=== PATIENT | male | born 1980 | race Caucasian/White ===

== ENCOUNTER 2023-01-01 07:00 | Emergency (ER) | payer BC ==
[~2023-01-01] VITALS: Ht 185.4 cm; Wt 147.4 kg
[2023-01-01 07:07] VITALS: BP 130/78
--- NOTE | 2023-01-01 07:10 | NUR ---
TO LOBBY A/W BED AMBULATORY
--- NOTE | 2023-01-01 07:15 | NUR ---
TO BED AMBULATORY
[2023-01-01] MEDS ORDERED: KETOROLAC 30 MG/ML VIAL IM ONE (07:30)
[2023-01-01] MEDS ORDERED: LIDOCAINE 5% 1 EA PATCH TP SCH (07:30)
[2023-01-01] MEDS ORDERED: diazePAM 5 MG TAB PO ONE (07:30)
[2023-01-01 08:00] VITALS: BP 130/78
--- NOTE | 2023-01-01 08:00 | NUR ---
MD evaluating patient
[2023-01-01] MEDS ORDERED: oxyCODONE/APAP 5/325 MG 1 TAB TAB PO ONE (08:35)
[2023-01-01] MEDS ORDERED: OXYC5TAB4 PO ×2 (09:05→11:57)
--- NOTE | 2023-01-01 09:48 | NUR ---
Patient discharged with v/s stable. Written and verbal after care instructions given and explained. Patient alert, oriented and verbalized understanding of instructions. Ambulatory with steady gait. All questions addressed prior to discharge. ID band removed. Patient advised to follow up with PMD. Rx of Roxicodone given. Patient educated on indication of medication including possible reaction and side effects. Opportunity to ask questions provided and answered.
== END 2023-01-01 09:48 | disposition home or self-care (01) ==
LOC: MED 07:00
DX: M54.50 Low back pain, unspecified (principal); Z79.899 Other long term (current) drug therapy
CPT/HCPCS: 96372; 99284; J1885

== ENCOUNTER 2023-11-18 09:11 | Emergency (ER) | payer BC, MEDICAID ==
[~2023-11-18] VITALS: Ht 185.4 cm; Wt 131.5 kg
[~2023-11-18 09:11] MED LIST: OXYC5TAB4 PO
[2023-11-18 09:27] VITALS: BP 129/100; PULSE 78; RESP 16; TEMP 97.9; O2SAT 99
[2023-11-18] MEDS ORDERED: KETOROLAC 30 MG/ML VIAL ONE (09:48)
[2023-11-18] MEDS: KETOROLAC 30 MG/ML VIAL IM ONE (09:54)
[2023-11-18] MEDS ORDERED: ALBU0.0912 IH (10:28)
[2023-11-18] MEDS ORDERED: BENZ200C4 PO (10:28)
[2023-11-18 10:30] LABS: FLU A ANTIGEN negative (NEGATIVE); FLU B ANTIGEN NEGATIVE (NEGATIVE)
[2023-11-18 10:36] VITALS: BP 129/100; PULSE 78; RESP 16; TEMP 97.9; O2SAT 98
== END 2023-11-18 10:36 | disposition home or self-care (01) ==
LOC: MED 09:11
DX: B34.9 Viral infection, unspecified (principal); J06.9 Acute upper respiratory infection, unspecified; Z20.822 Contact with and (suspected) exposure to COVID-19; I10 Essential (primary) hypertension; Z79.899 Other long term (current) drug therapy
CPT/HCPCS: 87426; 87804; 96372; 99283; J1885

== ENCOUNTER 2023-11-30 07:02 | Emergency (ER) | payer BC ==
[~2023-11-30] VITALS: Ht 185.4 cm; Wt 127.0 kg
[~2023-11-30 07:02] MED LIST changes: +ALBU0.0912 IH; +BENZ200C4 PO
[2023-11-30 07:21] VITALS: BP 123/84; PULSE 77; RESP 18; TEMP 98.1; O2SAT 96
[2023-11-30] MEDS: KETOROLAC 30 MG/ML VIAL IM ONE (08:09)
[2023-11-30 08:33] LABS: APPEARANCE,URINE CLEAR (CLEAR); BILIRUBIN,URINE NEGATIVE (NEGATIVE); BLOOD, URINE TRACE-I (NEGATIVE); COLOR,URINE YELLOW (YELLOW); LEUKOCYTE ESTERASE ,URINE NEGATIVE (NEGATIVE); NITRITE, URINE NEGATIVE (NEGATIVE); PH,URINE 6.5 (5.0-9.0); PROTEIN,URINE NEGATIVE (NEGATIVE); UGLUCOSE NEGATIVE (NEGATIVE)
[2023-11-30 09:01] LABS: BACTERIA,URINE OCCASSIONAL /HPF (None Seen); SQUAMOUS EPITHELIAL CELL,UR 0-3 (FEW) /LPF (0-3 (FEW)); WBC,URINE 0-5 /HPF (0-5)
[2023-11-30 09:14] LABS: FLU A ANTIGEN negative (NEGATIVE); FLU B ANTIGEN NEGATIVE (NEGATIVE)
[2023-11-30 09:27] LABS: BASOPHILS % (AUTO) 0.7 % (0.0-2.0); EOSINOPHILS # (AUTO) 0.2 K/uL (0-0.4); EOSINOPHILS % (AUTO) 3.2 % (0.0-4.0); HEMATOCRIT 45.5 % (36-52); HEMOGLOBIN 15.7 g/dL (12.0-18.0); LYMPHOCYTES # (AUTO) 1.2 K/uL (2.0-11.5); LYMPHOCYTES % (AUTO) 18.8 % (20.5-51.1); MEAN CORPUSCULAR HEMOGLOBIN 30 pg (27-31); MEAN CORPUSCULAR HGB CONC 35 g/dL (33-37); MEAN CORPUSCULAR VOLUME 87.4 fL (80-94); MONOCYTES # (AUTO) 0.5 K/uL (0.8-1.0); MONOCYTES % (AUTO) 8.1 % (1.7-9.3); NEUTROPHILS # (AUTO) 4.6 K/uL (1.8-7.7); NEUTROPHILS % (AUTO) 69.2 % (42.2-75.2); PLATELET COUNT (AUTO) 254 K/uL (140-450); RED BLOOD CELL COUNT(AUTO) 5.21 MIL/uL (4.20-6.10); RED CELL DISTRIBUTION WIDTH 13.3 % (11.6-13.7); WHITE BLOOD COUNT (AUTO) 6.6 K/uL (4.8-10.8)
[2023-11-30] MEDS: MORPHINE SULFATE 4 MG/ML SYR IM ONE (09:30)
[2023-11-30 09:35] LABS: ANION GAP 11.7 (8-16); CALCIUM 8.6 mg/dL (8.5-10.1); CARBON DIOXIDE 27.1 mmol/L (21-32); POTASSIUM 3.8 mmol/L (3.5-5.1)
[2023-11-30] MEDS ORDERED: LID5T TP (09:48)
[2023-11-30] MEDS ORDERED: CYCL-711 PO (09:48)
[2023-11-30] MEDS ORDERED: NAPR-54 PO (09:48)
[2023-11-30] MEDS ORDERED: PSEU120T23 PO (10:01)
[2023-12-01] MEDS ORDERED: METH-1681 PO (12:10)
== END 2023-11-30 09:59 | disposition home or self-care (01) ==
LOC: MED 07:02
DX: M54.50 Low back pain, unspecified (principal); J06.9 Acute upper respiratory infection, unspecified; Z20.822 Contact with and (suspected) exposure to COVID-19; J45.909 Unspecified asthma, uncomplicated; I10 Essential (primary) hypertension; Z90.49 Acquired absence of other specified parts of digestive tract; Z79.899 Other long term (current) drug therapy; Z88.5 Allergy status to narcotic agent
CPT/HCPCS: 36415; 71045; 74176; 80048; 81001; 85025; 87426; 87804; 96372; 99285; J1885; J2270

== ENCOUNTER 2023-12-01 09:29 | Emergency (ER) | payer BC ==
[~2023-12-01] VITALS: Ht 185.4 cm; Wt 127.0 kg
[~2023-12-01 09:29] MED LIST changes: +CYCL-711 PO; +LID5T TP; +NAPR-54 PO; +PSEU120T23 PO
[2023-12-01 09:50] VITALS: BP 145/85; PULSE 95; RESP 16; TEMP 98.1; O2SAT 95
[2023-12-01] MEDS ORDERED: METH-1681 PO (12:10)
[2023-12-01 12:18] VITALS: BP 133/82; PULSE 88; RESP 16; TEMP 98.1; O2SAT 98
== END 2023-12-01 12:18 | disposition home or self-care (01) ==
LOC: MED 09:29
DX: M54.50 Low back pain, unspecified (principal); J45.909 Unspecified asthma, uncomplicated; I10 Essential (primary) hypertension; Z79.899 Other long term (current) drug therapy; Z88.5 Allergy status to narcotic agent
CPT/HCPCS: 99283